=== PATIENT | female | born 1975 | race Caucasian/White ===

== ENCOUNTER 2019-02-17 18:57 | Emergency (ER) | payer OTHER ==
--- OUTSIDE RECORDS SUMMARY | 2019-02-17 19:00 | XMS REPORT ---
:1975 Author Organization [employer] Care Team Providers Name Role Phone Sasha Rich Provider Role Unavailable Allergies, Adverse Reactions, Alerts Substance Reaction Event Type N.K.D.A. Info Not Available Non Drug Allergy Problems Problem Type Condition Code Onset Dates Condition Status Assessment H/O myomectomy Z98.890 Active Assessment Encounter for annual routine Z01.419 Active gynecological examination Assessment H/O section Z98.891 Active Problem Elevated blood pressure reading R03.0 Active without diagnosis of hypertension Problem H/O section Z98.891 Active Problem PCOS (polycystic ovarian syndrome) E28.2 Active Assessment Pelvic pain R10.2 Active Problem H/O myomectomy Z98.890 Active Problem Hx of cholecystectomy Z90.49 Active Assessment Elevated blood pressure reading R03.0 Active without diagnosis of hypertension Assessment PCOS (polycystic ovarian syndrome) E28.2 Active Assessment Hx of cholecystectomy Z90.49 Active Assessment Encounter for screening mammogram Z12.31 Active for malignant neoplasm of breast Medications No Known Medications Results No Known Results Summary Purpose eClinicalWorks Submission
--- OUTSIDE RECORDS SUMMARY | 2019-02-17 19:00 | XMS REPORT ---
:1975 Author Organization [employer] Care Team Providers Name Role Phone Sasha Rich Provider Role Unavailable Allergies, Adverse Reactions, Alerts Substance Reaction Event Type N.K.D.A. Info Not Available Non Drug Allergy Problems Problem Type Condition Code Onset Dates Condition Status Assessment Ovarian cyst, right N83.201 Active Problem H/O section Z98.891 Active Problem H/O myomectomy Z98.890 Active Problem Ovarian cyst, right N83.201 Active Problem Elevated blood pressure reading R03.0 Active without diagnosis of hypertension Problem Hx of cholecystectomy Z90.49 Active Problem PCOS (polycystic ovarian syndrome) E28.2 Active Medications No Known Medications Results No Known Results Summary Purpose eClinicalWorks Submission
--- OUTSIDE RECORDS SUMMARY | 2019-02-17 19:00 | XMS REPORT ---
:1975 Author Organization [employer] Care Team Providers Name Role Phone Sasha Rich Provider Role Unavailable Allergies No Known Allergies Problems Problem Type Condition Code Onset Dates [...] Medications Results No Known Results Summary Purpose [employer] Submission
[2019-02-17] MEDS ORDERED: ALBUTEROL 2.5 MG/3 ML NEB SOL ONE (19:42)
[2019-02-17] MEDS ORDERED: IPRATROPIUM BROM 0.5MG/2.5ML ONE (19:43)
--- NOTE | 2019-02-17 19:43 | RAD REPORT ---
EXAM DESCRIPTION: RAD - Chest Pa And Lat (2 Views) - 02/17/2019 7:38 pm CLINICAL HISTORY: CHEST PAIN Chest pain. COMPARISON: Chest Single View dated 10/09/2017 FINDINGS: The lungs are clear. The heart is mildly prominent size. No displaced fractures. IMPRESSION: No acute or concerning finding suspected.
[2019-02-17 20:27] LABS: Absolute Lymphocytes (CBC) 0.8 K/uL (0.7-4.9); Absolute Monocytes 0.8 K/uL (0.1-1.3); Absolute Neutrophil 7.8 K/uL (1.8-8.0); Basophils % 0.3 % (0-1.3); Eosinophils % 1.1 % (0-4.4); Hematocrit 43.5 % (36.0-45.0); Lymphocytes % 8.6 % (15.3-44.8); MPV 10.1 fL (7.6-11.3); Monocytes % 8.3 % (3.3-12.3)
[2019-02-17 20:31] LABS: BUN Blood Urea Nitrogen 8 mg/dL (7-18); Bicarbonate 25 mmol/L (21-32); Glucose Level 106 mg/dL (74-106); Potassium 3.8 mmol/L (3.5-5.1); Sodium Level 137 mmol/L (136-145)
[2019-02-17] MEDS ORDERED: ONDANSETRON 4 MG/2 ML VIAL ONE (20:32)
--- NOTE | 2019-02-17 21:09 | EDPHYS ---
Physician Documentation [facility] Name: Latisha Montano Age: 43 yrs Sex: Female : 1975 Arrival Date: 02/17/2019 Time: 19:01 Bed 2 Private MD: ED Physician Elvin Damian HPI: 02/17 22:18 This 43 yrs old Female presents to ER via Ambulatory with complaints of kb Breathing Difficulty, Cough. 22:18 The patient or guardian reports cough, that is intermittent, described as moderate, kb with no sputum, difficulty breathing, flu symptoms, low-grade fever, myalgias. The patient has not experienced similar symptoms in the past. The patient has not recently seen a physician. 22:18 Onset: The symptoms/episode began/occurred 3 day(s) ago. Severity of symptoms: At their kb worst the symptoms were moderate, in the emergency department the symptoms are unchanged. Modifying factors: The symptoms are alleviated by nothing, the symptoms are aggravated by nothing. Associated signs and symptoms: Pertinent positives: fever, Pertinent negatives: chest pain, diarrhea, ear ache, nausea, rhinorrhea, sore throat, vomiting. Pt reports cough, congestion, fever, bodyaches and shortness of breath since Monday. States everyone at home has the same symptoms, they are just hitting her worse. . Historical: - Allergies: 19:12 No Known Allergies; ph - Home Meds: 19:12 None [Active]; ph - PMHx: 19:12 None; ph - PSHx: 19:12 ACL; ; uterine cyst; Cholecystectomy; ph - Immunization history:: Adult Immunizations unknown. - Social history:: Smoking status: unknown. - Ebola Screening: : No symptoms or risks identified at this time. ROS: 22:14 ENT: Negative for injury, pain, and discharge, Cardiovascular: Negative for chest pain, kb palpitations, and edema, Abdomen/GI: Negative for abdominal pain, nausea, vomiting, diarrhea, and constipation, Back: Negative for injury and pain, MS/Extremity: Negative for injury and deformity, Skin: Negative for injury, rash, and discoloration, Neuro: Negative for headache, weakness, numbness, tingling, and seizure. 22:14 Constitutional: Positive for body aches, chills, fatigue, fever, malaise, Negative for poor PO intake, weight loss. 22:14 Respiratory: Positive for cough, shortness of breath, Negative for dyspnea on exertion, hemoptysis, orthopnea, pleurisy, sputum production, wheezing. Exam: 22:14 Head/Face: Normocephalic, atraumatic. Neck: Trachea midline, no thyromegaly or masses kb palpated, and no cervical lymphadenopathy. Supple, full range of motion without nuchal rigidity, or vertebral point tenderness. No Meningismus. Chest/axilla: Normal chest wall appearance and motion. Nontender with no deformity. No lesions are appreciated. Cardiovascular: Regular rate and rhythm with a normal S1 and S2. No gallops, murmurs, or rubs. Normal PMI, no JVD. No pulse deficits. Respiratory: Lungs have equal breath sounds bilaterally, clear to auscultation and percussion. No rales, rhonchi or wheezes noted. No increased work of breathing, no retractions or nasal flaring. Abdomen/GI: Soft, non-tender, with normal bowel sounds. No distension or tympany. No guarding or rebound. No evidence of tenderness throughout. Skin: Warm, dry with normal turgor. Normal color with no rashes, no lesions, and no evidence of cellulitis. MS/ Extremity: Pulses equal, no cyanosis. Neurovascular intact. Full, normal range of motion. Neuro: Awake and alert, GCS 15, oriented to person, place, time, and situation. Cranial nerves II-XII grossly intact. Motor strength 5/5 in all extremities. Sensory grossly intact. Cerebellar exam normal. Normal gait. 22:14 Constitutional: The patient appears alert, awake, obviously ill. Vital Signs: 19:12 BP 153 / 85; Pulse 107; Resp 20; Temp 100.1(O); Pulse Ox 98% on R/A; Weight 92.99 kg; ph Height 5 ft. 6 in. (167.64 cm); 20:04 BP 135 / 80; Pulse 104; Resp 20; Pulse Ox 94% on R/A; ak1 20:48 Temp 100.3(TE); ak1 21:20 BP 101 / 78; Pulse 98; Resp 20; Temp 99.5; Pulse Ox 99% ; rr5 19:12 Body Mass Index 33.09 (92.99 kg, 167.64 cm) ph 20:48 pt eating ice chips ak1 MDM: 19:08 Patient medically screened. kb 19:14 Patient medically screened. kb 21:08 Data reviewed: vital signs, nurses notes. Data interpreted: Pulse oximetry: on room air kb is 96 %. Interpretation: normal. Counseling: I had a detailed discussion with the patient and/or guardian regarding: the historical points, exam findings, and any diagnostic results supporting the discharge/admit diagnosis, lab results, radiology results, the need for outpatient follow up, a family practitioner, to return to the emergency department if symptoms worsen or persist or if there are any questions or concerns that arise at home. 21:09 ED course: Feeling better after treatment. kb 02/17 19:20 Order name: CBC with Diff kb 02/17 19:20 Order name: Basic Metabolic Panel kb 02/17 19:20 Order name: Flu kb 02/17 19:21 Order name: CBC with Automated Diff; Complete Time: 20:39 EDMS 02/17 19:21 Order name: Basic Metabolic Panel; Complete Time: 20:35 EDMS 02/17 19:21 Order name: Influenza Screen (A ; Complete Time: 20:41 EDMS 02/17 19:20 Order name: Chest Pa And Lat (2 Views) XRAY; Complete Time: 19:51 kb 02/17 19:20 Order name: IV Start; Complete Time: 20:03 kb Administered Medications: 20:03 Drug: AtroVENT Aerosol 0.5 mg Route: Inhalation; ak1 20:03 Drug: Albuterol 2.5 mg Route: Inhalation; ak1 20:22 Drug: Zofran 4 mg Route: IVP; Site: right antecubital; ak1 20:23 Follow up: Response: No adverse reaction ak1 21:08 Drug: Ibuprofen 600 mg Route: PO; rr5 21:44 Follow up: Response: No adverse reaction; Medication administered at discharge. ak1 Disposition: 02/17/19 21:09 Discharged to Home. Impression: Bronchitis, not specified as acute or chronic. - Condition is Stable. - Discharge Instructions: Acute Bronchitis, [id number], Viral Respiratory Infection, [id number]. - Prescriptions for Prednisone 20 mg Oral Tablet - take 1 tablet by ORAL route once daily for 5 days; 5 tablet. Albuterol Sulfate 90 mcg/actuation - inhale 1-2 puff by INHALATION route every 4-6 hours; 1 Inhaler. - Medication Reconciliation Form, Thank You Letter, Antibiotic Education, Prescription Opioid Use form. - Follow up: Emergency Department; When: As needed; Reason: Worsening of condition. Follow up: Private Physician; When: 2 - 3 days; Reason: Recheck today's complaints, Continuance of care, Re-evaluation by your physician. Addendum: 02/21/2019 22:47 Co-signature as Attending Physician, Elvin Damian MD. g s Signatures: Dispatcher [employer] EDMS Nohemi Rosen, BOX FABRICATOR-C BOX FABRICATOR-Ckb Rose Guaman RN RN ak1 Adina Barrios RN RN ph Elvin Damian MD MD Liborio Calvert RN RN rr5 Corrections: (The following items were deleted from the chart) 02/17 21:30 21:09 02/17/2019 21:09 Discharged to Home. Impression: Bronchitis, not specified as ak1 acute or chronic. Condition is Stable. Forms are Medication Reconciliation Form, Thank You Letter, Antibiotic Education, Prescription Opioid Use. Follow up: Emergency Department; When: As needed; Reason: Worsening of condition. Follow up: Private Physician; When: 2 - 3 days; Reason: Recheck today's complaints, Continuance of care, Re-evaluation by your physician. kb
--- NOTE | 2019-02-17 21:09 | ER ---
Nurse's Notes [facility] [place] [place] Name: Latisha Montano Age: 43 yrs Sex: Female : 1975 Arrival Date: 02/17/2019 Time: 19:01 Bed 2 Private MD: Diagnosis: Bronchitis, not specified as acute or chronic Presentation: 02/17 19:10 Presenting complaint: Patient states: Fever, cough, congestion and SOB since Monday, also reports sore throat and N/V after coughing spells. Transition of care: patient was not received from another setting of care. Onset of symptoms was February 17, 2019. Risk Assessment: Do you want to hurt yourself or someone else? Patient reports no desire to harm self or others. Initial Sepsis Screen: Does the patient meet any 2 criteria? No. Patient's initial sepsis screen is negative. Does the patient have a suspected source of infection? Yes: Productive cough/pneumonia. 19:10 Method Of Arrival: Ambulatory 19:10 Acuity: MILKA 3 20:07 Care prior to arrival: None. ak1 Triage Assessment: 20:04 General: Appears in no apparent distress. Behavior is calm, cooperative. Pain: ak1 Complains of pain in body aches. EENT: Nares with drainage noted. Neuro: No deficits noted. Cardiovascular: No deficits noted. Respiratory: Reports shortness of breath cough that is Onset: The symptoms/episode began/occurred Monday , the patient has mild shortness of breath. GI: Reports nausea. : No signs and/or symptoms were reported regarding the genitourinary system. Derm: No signs and/or symptoms reported regarding the dermatologic system. Musculoskeletal: Reports body aches. Historical: - Allergies: 19:12 No Known Allergies; ph - Home Meds: 19:12 None [Active]; ph - PMHx: 19:12 None; ph - PSHx: 19:12 ACL; ; uterine cyst; Cholecystectomy; ph - Immunization history:: Adult Immunizations unknown. - Social history:: Smoking status: unknown. - Ebola Screening: : No symptoms or risks identified at this time. Screenin:06 Abuse screen: Denies threats or abuse. Denies injuries from another. Nutritional ak1 screening: No deficits noted. Tuberculosis screening: No symptoms or risk factors identified. Fall Risk None identified. Assessment: 19:31 Reassessment: pt gone to Xray. ak1 20:07 Respiratory: Airway is patent Respiratory effort is labored, Breath sounds with wheezes.ak1 20:07 Cardiovascular: Rhythm is sinus tachycardia. ak1 20:08 Reassessment: see triage assessment. ak1 Vital Signs: 19:12 BP 153 / 85; Pulse 107; Resp 20; Temp 100.1(O); Pulse Ox 98% on R/A; Weight 92.99 kg; ph Height 5 ft. 6 in. (167.64 cm); 20:04 BP 135 / 80; Pulse 104; Resp 20; Pulse Ox 94% on R/A; ak1 20:48 Temp 100.3(TE); ak1 21:20 BP 101 / 78; Pulse 98; Resp 20; Temp 99.5; Pulse Ox 99% ; rr5 19:12 Body Mass Index 33.09 (92.99 kg, 167.64 cm) ph 20:48 pt eating ice chips ak1 ED Course: 19:01 Patient arrived in ED. tw3 19:08 Nohemi Rosen FNP-C is PHCP. kb 19:08 Elvin Damian MD is Attending Physician. kb 19:11 Triage completed. ph 19:13 Arm band placed on. ph 19:27 Rose Guaman, MARTINEZ is Primary Nurse. ak1 19:37 Chest Pa And Lat (2 Views) XRAY In Process Unspecified. EDMS 20:04 Initial lab(s) drawn, by az, sent to lab. Flu and/or RSV swab sent to lab. X-ray(s) ak1 taken. Inserted saline lock: 22 gauge in right antecubital area, using aseptic technique. Blood collected. 20:07 Patient has correct armband on for positive identification. Bed in low position. Call ak1 light in reach. Side rails up X 1. pt refused gown. Pulse ox on. NIBP on. 21:29 No provider procedures requiring assistance completed. IV discontinued, intact, ak1 bleeding controlled, No redness/swelling at site. Pressure dressing applied. Administered Medications: 20:03 Drug: AtroVENT Aerosol 0.5 mg Route: Inhalation; ak1 20:03 Drug: Albuterol 2.5 mg Route: Inhalation; ak1 20:22 Drug: Zofran 4 mg Route: IVP; Site: right antecubital; ak1 20:23 Follow up: Response: No adverse reaction ak1 21:08 Drug: Ibuprofen 600 mg Route: PO; rr5 21:44 Follow up: Response: No adverse reaction; Medication administered at discharge. ak1 Outcome: 21:09 Discharge ordered by MD. urban 21:29 Discharged to home ambulatory. ak1 21:29 Condition: stable 21:29 Discharge instructions given to patient, Instructed on discharge instructions, follow up and referral plans. medication usage, Demonstrated understanding of instructions, follow-up care, medications, Prescriptions given X 2. 21:30 Patient left the ED. ak1 Signatures: Dispatcher [employer] EDMS Nohemi Rosen, IAN-C QUALITY ASSURANCE ADVISOR-Rose Morelos RN RN ak1 Adina Barrios, RN RN Laz, Rosa tw3 Liborio Calvert RN RN rr5
[2019-02-17] MEDS ORDERED: IBUPROFEN 400 MG TAB ONE (21:19)
[2019-02-17] MEDS ORDERED: IBUPROFEN 200 MG TAB PO ONE (21:20)
== END 2019-02-17 21:30 | disposition home or self-care (01) ==
LOC: ER 18:57
DX: J40 Bronchitis, not specified as acute or chronic (principal)
CPT/HCPCS: 36415; 71046; 80048; 85025; 87804; 96374; 99285; J2405